=== PATIENT | male | born 1985 ===

== ENCOUNTER → 2020-10-16 | Outpatient (CLI) | payer SELFPAY ==
[~2020-10-16] MED LIST: COVID-19 VACCINE (PFIZER)/PF 30 MCG/0.3 ML VIAL IM ONE; EPINEPHRINE INJ/PF 1 MG/1 ML AMPULE IM PRN
--- OUTSIDE RECORDS SUMMARY | 2020-10-19 10:28 | XMS REPORT ---
:1985 Demographics Address [address] [place] [address] Email Address Preferred Language [id number] Marital Status Unknown Mosque Affiliation Unknown Race Unknown Ethnic Group Unknown Author Organization [facility] Address [address] [address] Care Team Providers Name Role Phone Unavailable Unavailable Unavailable Allergies, Adverse Reactions, Alerts This patient has no known allergies or adverse reactions. Medications This patient has no known medications. Problems This patient has no known problems. Procedures This patient has no known procedures. Results Test Description Test Time Test Comments Text Results Atomic Results Result Comments SARS-CoV-2 RNA Resp Ql ANGIE+probe 2020-02-12 00:00:00 Test Item Value Reference Range Comments SARS-CoV-2 RNA Resp Ql ANGIE+probe Not detected [facility] Case ID: (test code = 34830-2) [id number] C1 Esterase [id number] 16:05:00 Test Item Value Reference Range Comments C1 Inhibitor, Protein (test code = 892801) 25 mg/dL 21-39 C3 and [id number] 16:05:00 Test Item Value Reference Range Comments Complement Component C4c (test code = 797835) 46 mg/dL 15 -53 Complement Component C3c (test code = 047451) 290 mg/dL 82 -185 Social History This patient has no known social history. Vital Signs This patient has no known vital signs.
== END ==
LOC: EMPHEALTH 14:48
PROVIDERS: ATTEND Internal Medicine
DX: Z23 Encounter for immunization (principal)
CPT/HCPCS: 91300